=== PATIENT | female | born 1965 | race Caucasian/White ===

== ENCOUNTER 2017-02-07 21:44 | Emergency (ER) | payer MEDICAID ==
[2017-02-07 23:24] VITALS: BP 136/81
[2017-02-08] MEDS ORDERED: Ketorolac 60 MG/2 ML SDV IM ONE (00:30)
--- NOTE | 2017-02-08 01:28 | EDM.PDOC ---
ED HPI GENERAL MEDICAL PROBLEM - General Chief Complaint: Back Pain or Injury Stated Complaint: R LOWER BACK PAIN Time Seen by Provider: 02/08/17 00:11 Source of Information: Reports: Patient History Limitations: Reports: No Limitations - History of Present Illness INITIAL COMMENTS - FREE TEXT/NARRATIVE: low back pain; this is a 51 year old female presents to ER for back pain. she reports 3 weeks ago slipped but did not fall, twisting her back. reports she was also seen in [place] for the same symptoms. She was given 20 Hydrocodone, took last pill yesterday. Has appointment with Primary Care tomorrow for establish care. Onset: Gradual Duration: Week(s):, Constant Location: Reports: Back Quality: Reports: Ache, Throbbing Severity: Moderate Improves with: Reports: Rest Worsens with: Reports: Movement Associated Symptoms: Reports: No Other Symptoms Treatments HEALTH AND SAFETY DIRECTOR: Reports: Acetaminophen, NSAIDS Right Flank Pain Score (Numeric/FACES): 7 - Related Data Allergies Allergy/AdvReac Type Severity Reaction Status Date / Time No Known Allergies Allergy Verified 09/23/16 18:59 Home Meds: Home Meds Cyclobenzaprine [Flexeril] 10 mg PO TID 09/23/16 [History] hydrOXYzine HCl [Atarax] 25 - 50 mg PO DAILY PRN 09/23/16 [History] Citalopram [Celexa] 10 mg PO DAILY 02/08/17 [History] Past Medical History HEENT History: Reports: Impaired Vision Gastrointestinal History: Reports: Diverticulosis Musculoskeletal History: Reports: Fracture - Past Surgical History GI Surgical History: Reports: Other (See Below) Other GI Surgeries/Procedures: pt unable to describe but sounds like incision and drainage of an abscess Musculoskeletal Surgical History: Reports: ORIF Social & Family History - Tobacco Use Smoking Status *Q: Current Every Day Smoker Years of Tobacco use: 20 Packs/Tins Daily: 0.5 Used Tobacco, but Quit: No - Caffeine Use Caffeine Use: Reports: Coffee - Recreational Drug Use Recreational Drug Use: No - Living Situation & Occupation Social History Comment: lives in [place], [place]. ED ROS GENERAL - Review of Systems Review Of Systems: See Below Constitutional: Reports: No Symptoms HEENT: Reports: No Symptoms Respiratory: Reports: No Symptoms Cardiovascular: Reports: No Symptoms Endocrine: Reports: No Symptoms GI/Abdominal: Reports: No Symptoms : Reports: No Symptoms Musculoskeletal: Reports: Back Pain, Muscle Pain, Muscle Stiffness Neurological: Reports: No Symptoms Psychiatric: Reports: No Symptoms ED EXAM, GENERAL - Physical Exam Exam: See Below General Appearance: Alert, WD/WN, Mild Distress Ears: Normal External Exam, Normal Canal, Hearing Grossly Normal, Normal TMs Ear Exam: Bilateral Ear: Auricle Normal, Canal Normal, TM normal Nose: Normal Inspection, Normal Mucosa, No Blood Throat/Mouth: Normal Inspection, Normal Lips, Normal Teeth, Normal Gums, Normal Oropharynx, Normal Voice, No Airway Compromise Head: Atraumatic, Normocephalic Neck: Normal Inspection, Supple, Non-Tender, Full Range of Motion Respiratory/Chest: No Respiratory Distress Cardiovascular: Normal Peripheral Pulses, Regular Rate, Rhythm, No Edema, No Gallop, No JVD, No Murmur, No Rub Peripheral Pulses: 2+: Dorsalis Pedis (L), Dorsalis Pedis (R) GI/Abdominal: Normal Bowel Sounds, Soft, Non-Tender Back Exam: Normal Inspection, Decreased Range of Motion, Muscle Spasm Extremities: Normal Inspection, Normal Range of Motion, Non-Tender, Normal Capillary Refill, No Pedal Edema Neurological: Alert, Oriented, Normal Gait Psychiatric: Normal Affect, Normal Mood Skin Exam: Warm, Dry, Intact, Normal Color, No Rash Lymphatic: No Adenopathy Course - Vital Signs Last Recorded V/S: Last Vital Signs Temp 36.0 C 02/08/17 00:18 Pulse 72 02/08/17 00:18 Resp 18 02/08/17 00:18 BP 136/81 02/08/17 00:18 Pulse Ox 98 02/08/17 00:18 - Orders/Labs/Meds Orders: Active Orders 24 hr Category Date Time Status Lumbar Spine Min 4V [CR] Stat Exams 02/08/17 00:31 Taken urine +large leukocytes, +WBC Labs: Laboratory Tests 02/08/17 02/08/17 Range/Units 00:20 00:20 Urine Color Yellow Urine Appearance Cloudy Urine pH 5.0 (4.5-8.0) Ur Specific [place] 1.010 (1.008-1.030) Urine Protein Negative (NEGATIVE) mg/dL Urine Glucose (UA) Normal (NEGATIVE) mg/dL Urine Ketones Negative (NEGATIVE) mg/dL Urine Occult Blood Negative (NEGATIVE) Urine Nitrite Negative (NEGATIVE) Urine Bilirubin Negative (NEGATIVE) Urine Urobilinogen Normal (NORMAL) mg/dL Ur Leukocyte Esterase Large (NEGATIVE) Urine RBC 0-5 (0-5) Urine WBC 10-20 H (0-5) Ur Epithelial Cells Many Amorphous Sediment Not seen Urine Bacteria Many Urine Mucus Few Urine Opiates Screen Positive H (NEGATIVE) Ur Oxycodone Screen Positive H (NEGATIVE) Urine Methadone Screen Negative (NEGATIVE) Ur Propoxyphene Screen Negative (NEGATIVE) Ur Barbiturates Screen Negative (NEGATIVE) Ur Tricyclics Screen Negative (NEGATIVE) Ur Phencyclidine Scrn Negative (NEGATIVE) Ur Amphetamine Screen Negative (NEGATIVE) U Methamphetamines Scrn Negative (NEGATIVE) Urine MDMA Screen Negative (NEGATIVE) U Benzodiazepines Scrn Negative (NEGATIVE) U Cocaine Metab Screen Negative (NEGATIVE) U Marijuana (THC) Screen Negative (NEGATIVE) Meds: Medications Discontinued Medications Generic Name Dose Route Start Last Admin Trade Name Freq PRN Reason Stop Dose Admin Ketorolac Tromethamine 60 mg 02/08/17 00:30 02/08/17 01:03 Toradol IM 02/08/17 00:31 60 mg ONETIME ONE Administration - Radiology Interpretation Free Text/Narrative:: lumbar spine; no acute bony process, await radiology eval Departure - Departure Time of Disposition: 01:47 Disposition: Home, Self-Care 01 Condition: Good Clinical Impression: Bladder infection Low back pain Qualifiers: Back pain laterality: right Sciatica laterality: sciatica of right side - Discharge Information Instructions: Back Pain, Adult, Urinary Tract Infection, Adult Referrals: PCP,None [Primary Care Provider] - Forms: ED Department Discharge Care Plan Goals: bladder infection -macrobid one capsule two times a day for 7 days -drink 8 to 10 glasses of water per day low back pain -Toradol 60mg IM -Flexeril 10mg every 8 hours as needed for muscle spasms -hydrocodone 5-325mg one every 4 to6 hours disp #6 rest, avoid any bending, pushing, pulling or lifting for the next 3 to 5 days keep appointment with Primary Care for recheck. - Problem List & Annotations (1) Bladder infection SNOMED Code(s): 113368056 Code(s): N30.90 - CYSTITIS, UNSPECIFIED WITHOUT HEMATURIA Status: Acute Priority: High Current Visit: Yes (2) Low back pain SNOMED Code(s): 426939903 Code(s): M54.5 - LOW BACK PAIN Status: Acute Current Visit: Yes Qualifiers: Back pain laterality: right Sciatica laterality: sciatica of right side - My Orders Last 24 Hours: My Active Orders 02/08/17 00:31 Lumbar Spine Min 4V [CR] Stat - Assessment/Plan Last 24 Hours: My Active Orders 02/08/17 00:31 Lumbar Spine Min 4V [CR] Stat Plan: bladder infection -macrobid one capsule two times a day for 7 days -drink 8 to 10 glasses of water per day low back pain -Toradol 60mg IM -Flexeril 10mg every 8 hours as needed for muscle spasms -hydrocodone 5-325mg one every 4 to6 hours disp #6 rest, avoid any bending, pushing, pulling or lifting for the next 3 to 5 days keep appointment with Primary Care for recheck.
--- NOTE | 2017-02-08 09:45 | CR ---
Lumbar Spine Min 4V INDICATION: right side flank pain FINDINGS: 5 lumbar type vertebral bodies. Disc space height is relatively well-maintained. Minimal e ndplate hypertrophic changes at L4-5. Mild degenerative arthritis lower lumbar facet joints. Calcifi cations projected over bilateral kidneys. Consider noncontrast CT of the abdomen and pelvis.
== END 2017-02-08 01:42 | disposition home or self-care (01) ==
LOC: JP.ED 21:44
DX: N30.90 Cystitis, unspecified without hematuria (principal); F17.210 Nicotine dependence, cigarettes, uncomplicated; Z79.899 Other long term (current) drug therapy
CPT/HCPCS: 72110; 80305; 81001; 96372; 99284; J1885

== ENCOUNTER 2017-02-15 14:53 | Emergency (ER) | payer MEDICAID ==
[2017-02-15 15:13] VITALS: BP 133/84
--- NOTE | 2017-02-15 15:59 | EDM.PDOC ---
ED HPI GENERAL MEDICAL PROBLEM - General Chief Complaint: Back Pain or Injury Stated Complaint: PAIN MANAGEMENT Time Seen by Provider: 02/15/17 15:53 Source of Information: Reports: Patient, Family History Limitations: Reports: No Limitations - History of Present Illness INITIAL COMMENTS - FREE TEXT/NARRATIVE: pt arrived with increased pin the lower back and over the rt buttock. This does not extend down the leg. Onset: Gradual Duration: Day(s):, Getting Worse Location: Reports: Back, Other ( pain into the rt buttock. ) Quality: Reports: Sharp, Stabbing, Throbbing Associated Symptoms: Reports: No Other Symptoms Lower Back Pain Score (Numeric/FACES): 8 - Related Data Allergies Allergy/AdvReac Type Severity Reaction Status Date / Time No Known Allergies Allergy Verified 02/15/17 15:32 Home Meds: Home Meds Cyclobenzaprine [Flexeril] 10 mg PO TID 09/23/16 [History] hydrOXYzine HCl [Atarax] 25 - 50 mg PO DAILY PRN 09/23/16 [History] Citalopram [Celexa] 10 mg PO DAILY 02/08/17 [History] Methocarbamol [Methocarbamol] 1 tab PO BID PRN 02/15/17 [History] Past Medical History HEENT History: Reports: Impaired Vision Gastrointestinal History: Reports: Diverticulosis Musculoskeletal History: Reports: Fracture - Past Surgical History GI Surgical History: Reports: Other (See Below) Other GI Surgeries/Procedures: pt unable to describe but sounds like incision and drainage of an abscess Musculoskeletal Surgical History: Reports: ORIF Social & Family History - Tobacco Use Smoking Status *Q: Current Every Day Smoker Years of Tobacco use: 20 Packs/Tins Daily: 0.5 Used Tobacco, but Quit: No - Caffeine Use Caffeine Use: Reports: Coffee - Recreational Drug Use Recreational Drug Use: No ED ROS GENERAL - Review of Systems Review Of Systems: See Below Constitutional: Reports: No Symptoms HEENT: Reports: No Symptoms Respiratory: Reports: No Symptoms Cardiovascular: Reports: No Symptoms Endocrine: Reports: No Symptoms GI/Abdominal: Reports: No Symptoms : Reports: No Symptoms ED EXAM, UPPER BACK/NECK PAIN - Physical Exam Exam: See Below Text/Narrative:: pt turned quickly and she has had sig back pain since that time. The pain radiates to the rt and over the rt buttock. Exam Limited By: No Limitations General Appearance: Alert, Anxious, Severe Distress Ears Exam: Normal TMs Nose Exam: Normal Inspection Throat/Mouth Exam: Normal Inspection Head Exam: Atraumatic Neck Exam: Non-Tender Cardiovascular/Respiratory: Regular Rate, Rhythm GI/Abdominal: Other ( tender over the rt buttock) (Female) Exam: Deferred Rectal (Female) Exam: Deferred Back Exam: Other ( tender over the rt buttock with a positive straight leg raising. ) Extremities: Normal Inspection Course - Vital Signs Last Recorded V/S: Last Vital Signs Temp 36.9 C 02/15/17 15:31 Pulse 78 02/15/17 15:31 Resp 14 02/15/17 15:31 BP 133/84 02/15/17 15:31 Pulse Ox 98 02/15/17 15:31 - Re-Assessments/Exams Free Text/Narrative Re-Assessment/Exam: 02/15/17 15:57 mri showed a wide based disc on the rt L#_ L4 area. Departure - Departure Time of Disposition: 15:59 Disposition: Home, Self-Care 01 Condition: Fair Clinical Impression: Lumbar disc disease - Discharge Information Forms: ED Department Discharge Care Plan Goals: appt with Dr Nura Bishop. , appt with Amy Izaguirre, torodol 10mg twice daily with food fo the next 5 days, norco 5/325 q6h prn for severe pain, ice and heat.
== END 2017-02-15 16:24 | disposition home or self-care (01) ==
LOC: JP.ED 14:53
DX: M51.36 Other intervertebral disc degeneration, lumbar region (principal); F17.210 Nicotine dependence, cigarettes, uncomplicated; Z79.899 Other long term (current) drug therapy; M51.26 Other intervertebral disc displacement, lumbar region; M51.87 Other intervertebral disc disorders, lumbosacral region; M46.96 Unspecified inflammatory spondylopathy, lumbar region
CPT/HCPCS: 72148; 72148-26; 99283

== ENCOUNTER 2017-05-15 23:34 | Emergency (ER) | payer MEDICAID ==
--- NOTE | 2017-05-16 00:06 | EDM.PDOC ---
ED HPI GENERAL MEDICAL PROBLEM - General Chief Complaint: Gastrointestinal Problem Stated Complaint: MEDICAL VIA [facility] Time Seen by Provider: 05/15/17 23:51 Source of Information: Reports: Patient, RN Notes Reviewed History Limitations: Reports: No Limitations - History of Present Illness INITIAL COMMENTS - FREE TEXT/NARRATIVE: 51-year-old female presents emergency department day complaint of bright red blood in her stool, she states this started this morning initially had dark tarry stools this progressed to bright red blood by this evening she has felt dizzy throughout the day but currently that has resolved no nausea or vomiting has generalized abdominal cramping pain. Does have a history of diverticular disease past Abdomen Pain Score (Numeric/FACES): 6 - Related Data Allergies Allergy/AdvReac Type Severity Reaction Status Date / Time No Known Allergies Allergy Verified 02/15/17 15:32 Home Meds: Home Meds hydrOXYzine HCl [Atarax] 25 - 50 mg PO DAILY PRN 09/23/16 [History] Citalopram [Celexa] 10 mg PO DAILY 02/08/17 [History] Past Medical History HEENT History: Reports: Impaired Vision Gastrointestinal History: Reports: Diverticulosis Musculoskeletal History: Reports: Back Pain, Chronic, Fracture - Infectious Disease History Infectious Disease History: Reports: Chicken Pox - Past Surgical History GI Surgical History: Reports: Other (See Below) Other GI Surgeries/Procedures: pt unable to describe but sounds like incision and drainage of an abscess Musculoskeletal Surgical History: Reports: ORIF Social & Family History - Tobacco Use Smoking Status *Q: Current Every Day Smoker Years of Tobacco use: 20 Packs/Tins Daily: 0.5 Used Tobacco, but Quit: No - Caffeine Use Caffeine Use: Reports: Coffee, Soda - Recreational Drug Use Recreational Drug Use: No ED ROS GENERAL - Review of Systems Review Of Systems: See Below Constitutional: Reports: No Symptoms HEENT: Reports: No Symptoms Respiratory: Reports: No Symptoms Cardiovascular: Reports: No Symptoms GI/Abdominal: Reports: Abdominal Pain, Black Stool, Bloody Stool : Reports: No Symptoms Musculoskeletal: Reports: No Symptoms Skin: Reports: No Symptoms Neurological: Reports: No Symptoms ED EXAM, GI/ABD - Physical Exam Exam: See Below Exam Limited By: No Limitations General Appearance: Alert, WD/WN, No Apparent Distress Head: Atraumatic, Normocephalic Neck: Normal Inspection, Supple, Non-Tender, Full Range of Motion Respiratory/Chest: No Respiratory Distress, Lungs Clear, Normal Breath Sounds, No Accessory Muscle Use, Chest Non-Tender Cardiovascular: Regular Rate, Rhythm, No Murmur GI/Abdominal Exam: Normal Bowel Sounds, Soft, Tender (Generalized tenderness) Rectal (Female) Exam: Normal Exam, Normal Rectal Tone. No: Bloody Stool, Hemorrhoids Course - Vital Signs Last Recorded V/S: Last Vital Signs Temp 98.1 F 05/15/17 23:39 Pulse 94 05/16/17 01:30 Resp 18 05/15/17 23:39 BP 115/81 05/16/17 01:30 Pulse Ox 93 L 05/16/17 01:30 - Orders/Labs/Meds Orders: Active Orders 24 hr Category Date Time Status Abdomen Pelvis w Cont [CT] Stat Exams 05/16/17 01:24 Taken Sodium Chloride 0.9% [Normal Saline] 1,000 ml Med 05/16/17 01:30 Active IV ASDIRECTED Medication Orders Sodium Chloride (Normal Saline) 1,000 mls @ 999 mls/hr IV ASDIRECTED JOHNNY Last Admin: 05/16/17 01:29 Dose: 999 mls/hr Labs: Laboratory Tests 05/16/17 05/16/17 05/16/17 Range/Units 00:03 00:03 00:10 WBC 9.6 (4.5-11.0) K/uL RBC 4.28 (3.30-5.50) M/uL Hgb 13.5 (12.0-15.0) g/dL Hct 41.0 (36.0-48.0) % MCV 96 (80-98) fL MCH 32 H (27-31) pg MCHC 33 (32-36) % Plt Count 285 (150-400) K/uL Neut % (Auto) 71 H (36-66) % Lymph % (Auto) 20 L (24-44) % [place] % (Auto) 9 H (2-6) % Eos % (Auto) 1 L (2-4) % Baso % (Auto) 0 (0-1) % Sodium 136 L (140-148) mmol/L Potassium 3.9 (3.6-5.2) mmol/L Chloride 102 (100-108) mmol/L Carbon Dioxide 29 (21-32) mmol/L Anion Gap 8.9 (5.0-14.0) mmol/L BUN 14 (7-18) mg/dL Creatinine 0.8 (0.6-1.0) mg/dL Est Cr Clr Drug Dosing TNP Estimated GFR (MDRD) > 60 (>60) Glucose 115 H (74-106) mg/dL Lactic Acid 1.0 (0.4-2.0) mmol/L Calcium 8.4 L (8.5-10.1) mg/dL Total Bilirubin 0.4 (0.2-1.0) mg/dL AST 20 (15-37) U/L ALT 21 (12-78) U/L Alkaline Phosphatase 43 L (46-116) U/L Total Protein 7.0 (6.4-8.2) g/dL Albumin 3.3 L (3.4-5.0) g/dL Globulin 3.7 H (2.3-3.5) g/dL Albumin/Globulin Ratio 0.9 L (1.2-2.2) Lipase 63 L (73-393) U/L Meds: Medications Generic Name Dose Route Start Last Admin Trade Name Freq PRN Reason Stop Dose Admin Sodium Chloride 1,000 mls @ 999 mls/hr 05/16/17 01:30 05/16/17 01:29 Normal Saline IV 999 mls/hr ASDIRECTED JOHNNY Administration Discontinued Medications Generic Name Dose Route Start Last Admin Trade Name Grace PRN Reason Stop Dose Admin Hydromorphone HCl 1 mg 05/16/17 01:23 05/16/17 01:27 Dilaudid IVPUSH 05/16/17 01:24 1 mg ONETIME ONE Administration Sodium Chloride 70 mls @ 3 mls/sec 05/16/17 01:34 05/16/17 01:50 Normal Saline IV 05/16/17 01:35 3 mls/sec ASDIRECTED STA Administration Iopamidol 88 ml 05/16/17 01:34 05/16/17 01:50 Isovue-300 (61%) IV 05/16/17 01:35 100 ml . DIRECTED STA Administration Departure - Departure Time of Disposition: 02:43 Disposition: Home, Self-Care 01 Condition: Good Clinical Impression: Bloody stool - Discharge Information Referrals: PCP,None [Primary Care Provider] - Forms: ED Department Discharge Additional Instructions: Start the colonoscopy prep today, use hydrocodone as needed for pain control, please report to outpatient surgery for your colonoscopy on with Dr. Bishop - My Orders Last 24 Hours: My Active Orders 05/16/17 01:24 Abdomen Pelvis w Cont [CT] Stat 05/16/17 01:30 Sodium Chloride 0.9% [Normal Saline] 1,000 ml IV ASDIRECTED - Assessment/Plan Last 24 Hours: My Active Orders 05/16/17 01:24 Abdomen Pelvis w Cont [CT] Stat 05/16/17 01:30 Sodium Chloride 0.9% [Normal Saline] 1,000 ml IV ASDIRECTED Plan: Assessment Acuity = acute Site and laterality = bright red blood per stool Etiology = unclear etiology Manifestations = none Location of injury = Home Lab values = hemoglobin stable at 13.50 being low at 3.3 consistent hypoalbuminemia, CT scan of the abdomen shows thickened sigmoid colon consistent with a colitis Plan Called discussed case with Dr. Bishop general surgery he agreed to evaluate her with a colonoscopy, possible EGD if needed, she is given the colonoscopy prep today and then will follow-up for colonoscopy as an outpatient. Also provided 10 hydrocodone 5/325 one tab by mouth 3 times a day when necessary Patient was in agreement with the plan all questions were answered, they were instructed to return to the emergency department or call for worsening symptoms. This note was dictated using [employer] voice recognition software please call with any questions.
[2017-05-16] MEDS ORDERED: HYDROmorphone 1 MG/ML Syringe IVPUSH ONE (01:23)
[2017-05-16] MEDS ORDERED: Sodium Chloride 0.9% 1,000 ML IV SCH (01:30)
[2017-05-16 01:33] VITALS: BP 115/81
[2017-05-16] MEDS ORDERED: Iopamidol 612 MG/ML 100 ML Bottle IV STA (01:34)
== END 2017-05-16 03:00 | disposition home or self-care (01) ==
LOC: JP.ED 23:34
DX: K92.1 Melena (principal); F17.210 Nicotine dependence, cigarettes, uncomplicated; Z79.899 Other long term (current) drug therapy
CPT/HCPCS: 36415; 74177; 80053; 82272; 83605; 83690; 85025; 96361; 96374; 99284; J1170; J7030; J7040; Q9967

== ENCOUNTER 2017-05-17 08:34 | Day surgery (SDC) | payer MEDICAID ==
[2017-05-17] MEDS ORDERED: Dextrose 5%-Lactated Ringers 1,000 ML IV SCH (09:00)
[2017-05-17] MEDS ORDERED: Propofol 200 MG/20 ML SDV ONE (09:32)
[2017-05-17] MEDS ORDERED: Midazolam 1 MG/ML 2 ML SDV ONE (09:32)
[2017-05-17] MEDS ORDERED: fentaNYL 100 MCG/2 ML SDV ONE (09:32)
[2017-05-17] MEDS ORDERED: Glycopyrrolate 0.2 MG/ML 2 ML SDV IVPUSH ONE (09:45)
[2017-05-17 13:14] VITALS: BP 101/83
[2017-05-17] MEDS ORDERED: Barium Sulfate 105% w/v Susp 1,900 ML Bottle RECTAL ONE (13:55)
--- NOTE | 2017-05-17 14:09 | CR ---
Barium enema. Indication: Incomplete colonoscopy. Findings: The sigmoid colon is extensively redundant. Contrast has passed the sigmoid colon and into the right-sided colon. There is diverticular disease within the sigmoid colon. Correlate choice limit ed on this examination but no gross evidence for stricture within it. This can be better visualized a virtual colonoscopy. Impression: 1. Extensive redundancy within the sigmoid colon. This can be better visualized with virtual colonosc opy.
--- NOTE | 2017-05-21 12:33 | OR ---
DATE OF PROCEDURE: 05/17/2017 PREOPERATIVE DIAGNOSES: 1. Epigastric pain. 2. History of rectal bleeding. POSTOPERATIVE DIAGNOSES: 1. Upper GI endoscopy showing;. a. Small hiatal hernia with no significant inflammation at esophagogastric junction. b. Antral gastritis associated with few prepyloric erosions. 2. Colonoscopy showing a tortuous sigmoid colon preventing complete colonoscopy. OPERATIVE PROCEDURES: 1. Esophagogastroduodenoscopy with biopsies of the antrum for CLOtest. 2. Flexible colonoscopy (incomplete). ANESTHESIA: IV sedation. INDICATION FOR PROCEDURE: A 51-year-old female presenting with some epigastric pain as well as history of some dark red and tinged bright red rectal bleeding. The plan is to proceed with upper and lower endoscopy. Potential risks of the procedure including bleeding and perforation were discussed, and the patient wishes to proceed. DETAILS OF PROCEDURE: The patient was taken to the operating room and placed in a left lateral decubitus position. IV sedation was administered, after which the upper GI endoscope was passed orally through the length of the esophagus and into the stomach with retroflexion view of the fundus, and thereafter through the pyloric channel and then into the junction of the third and fourth portions of the duodenum. Findings included normal hypopharynx, larynx, and upper esophageal sphincter. At the EG junction, there was a small hiatal hernia present, but no significant gross inflammation present. There was no upward extension of the gastroesophageal junction mucosal line. Within the stomach, there was some gastritis within the antrum with diffuse scattered erosions. Some of these had some old [id number] material and others were covered with fibrinous exudate. The pyloric channel and proximal duodenum were unremarkable. Biopsies were then obtained from the antrum and sent for CLOtest for H. pylori. No bleeding from the biopsy sites were seen, and the procedure then concluded. Attention was then taken to the colonoscopy. Initial digital rectal exam was performed and was unremarkable. Colonoscope was then passed into the rectum with retroflexion revealing uncomplicated hemorrhoidal columns. The scope was then eventually passed to the level of the 30-cm shalom, but could not be passed beyond that. This likely has to do with the patient's previous history of diverticulitis, creating some sharp angulation and fixation of the bowel at that level. The scope was then withdrawn, and the procedure then concluded. The patient was taken to the recovery room in a satisfactory condition. The patient subsequently had a barium enema x-ray, and this showed severe redundancy of the colon, but no obvious pathology apart from the diverticulosis, and the patient was subsequently discharged home. The patient will be started on Protonix 40 mg a day and then we will see her back on 05/17/2017. If she continues to have bleeding, we may need to consider empiric sigmoid colon resection. Additionally, given the recurrence in the colon, as discussed with the radiologist, future screening would likely be best by means of a virtual colonoscopy rather than needing a barium enema or standard colonoscopy. The patient will be seen by myself in [facility] on 05/17/2017. Donovan Bishop MD /[id number]
== END 2017-05-17 15:07 | disposition home or self-care (01) ==
LOC: JP.SDS 08:34
PROVIDERS: ATTEND Surgery
DX: K92.1 Melena (principal); K44.9 Diaphragmatic hernia without obstruction or gangrene; F41.9 Anxiety disorder, unspecified; F17.210 Nicotine dependence, cigarettes, uncomplicated
CPT/HCPCS: 43239; 45378; 74270; 87081; J2250; J2704; J3010; J7042; J3490

== ENCOUNTER 2018-04-11 16:49 | Emergency (ER) | payer MEDICAID ==
[2018-04-11] MEDS ORDERED: Ketorolac 30 MG/ML SDV IVPUSH ONE (18:04)
[2018-04-11] MEDS ORDERED: Lactated Ringers 1,000 ML IV ONE (18:04)
--- NOTE | 2018-04-11 18:06 | EDM.PDOC ---
ED HPI GENERAL MEDICAL PROBLEM - General Chief Complaint: Abdominal Pain Stated Complaint: ILLNESS Time Seen by Provider: 04/11/18 18:00 Source of Information: Reports: Patient, Old Records History Limitations: Reports: Other (incomplete old records) - History of Present Illness INITIAL COMMENTS - FREE TEXT/NARRATIVE: 52 yo female with a pHx of diverticulitis presents with LLQ abdominal pain that has progressed for the past week. No fever. Says she has to stand to have a BM. No bleeding or nausea. Has lived in the [place] area for 2 yrs yet still does not have a primary care provider. Is on no meds. Here with her father. Stools variably hard, soft, and mucousy. Onset: Gradual Onset Date: 04/04/18 Duration: Week(s): (1), Constant, Getting Worse Location: Reports: Abdomen (LLQ) Quality: Reports: Ache Severity: Moderate Improves with: Reports: Rest Worsens with: Reports: Movement Context: Reports: Other (See HPI) Associated Symptoms: Reports: No Other Symptoms. Denies: Fever/Chills, Nausea/ Vomiting Treatments PODIATRIC MEDICINE PROFESSOR: Reports: Other (see below) (none) Left Lower Abdomen Pain Score (Numeric/FACES): 4 - Related Data Allergies Allergy/AdvReac Type Severity Reaction Status Date / Time No Known Allergies Allergy Verified 02/26/18 16:39 Home Meds: Home Meds S-Adenosylmethionine Sul Tosyl [Pollo-E] 200 mg PO DAILY 02/26/18 [History] Mesalamine [Canasa] 1,000 mg RECTAL BID #20 supp 04/11/18 [Rx] Past Medical History HEENT History: Reports: Impaired Vision Gastrointestinal History: Reports: Diverticulosis Musculoskeletal History: Reports: Back Pain, Chronic, Fracture Psychiatric History: Reports: Anxiety, Depression - Infectious Disease History Infectious Disease History: Reports: Chicken Pox - Past Surgical History Head Surgeries/Procedures: Reports: None HEENT Surgical History: Reports: Tonsillectomy GI Surgical History: Reports: Colonoscopy, Other (See Below) Other GI Surgeries/Procedures: pt unable to describe but sounds like incision and drainage of an abscess Musculoskeletal Surgical History: Reports: ORIF Dermatological Surgical History: Reports: None Social & Family History - Family History Family Medical History: Noncontributory - Tobacco Use Smoking Status *Q: Current Every Day Smoker Years of Tobacco use: 20 Packs/Tins Daily: 1 - Caffeine Use Caffeine Use: Reports: Coffee, Soda, Tea - Recreational Drug Use Recreational Drug Use: No ED ROS GENERAL - Review of Systems Review Of Systems: See Below Constitutional: Reports: No Symptoms HEENT: Reports: No Symptoms Respiratory: Reports: No Symptoms Cardiovascular: Reports: No Symptoms GI/Abdominal: Reports: Abdominal Pain (LLQ). Denies: Black Stool, Bloody Stool , Constipation, Diarrhea, Decreased Appetite, Distension, Hematemesis, Hematochezia, Melena, Nausea, Vomiting : Reports: No Symptoms Musculoskeletal: Reports: No Symptoms Skin: Reports: No Symptoms Neurological: Reports: No Symptoms Psychiatric: Reports: No Symptoms ED EXAM, GI/ABD - Physical Exam Exam: See Below Exam Limited By: No Limitations General Appearance: Alert, WD/WN, No Apparent Distress Eyes: Bilateral: Normal Appearance Ears: Normal External Exam, Normal Canal, Hearing Grossly Normal, Normal TMs Nose: Normal Inspection, Normal Mucosa, No Blood Throat/Mouth: Normal Inspection, Normal Lips, Normal Oropharynx, No Airway Compromise Head: Atraumatic, Normocephalic Neck: Normal Inspection, Supple Respiratory/Chest: No Respiratory Distress, Lungs Clear, Normal Breath Sounds, No Accessory Muscle Use Cardiovascular: Regular Rate, Rhythm, No Edema GI/Abdominal Exam: Normal Bowel Sounds, Soft, No Distention, Rebound, Tender ( LLQ). No: Non-Tender, Distended, Guarding, Rigid, Hernia Back Exam: Normal Inspection. No: CVA Tenderness (R), CVA Tenderness (L) Extremities: Normal Inspection, Normal Range of Motion, Non-Tender, No Pedal Edema Neurological: Alert, Oriented, CN II-XII Intact, Normal Cognition, No Motor/ Sensory Deficits Psychiatric: Normal Affect, Normal Mood Skin Exam: Warm, Dry, Intact, Normal Color, No Rash Lymphatic: No Adenopathy Course - Vital Signs Last Recorded V/S: Last Vital Signs Temp 37.0 C 04/11/18 17:07 Pulse 67 04/11/18 19:07 Resp 16 04/11/18 19:07 BP 140/89 04/11/18 19:07 Pulse Ox 96 04/11/18 19:07 - Orders/Labs/Meds Orders: Active Orders 24 hr Category Date Time Status Abdomen Pelvis w Cont [CT] Stat Exams 04/11/18 18:05 Taken Iopamidol [Isovue-300 (61%)] Med 04/11/18 18:30 Active 80 ml IV . DIRECTED Sodium Chloride 0.9% [Normal Saline] 70 ml Med 04/11/18 18:30 Active IV ASDIRECTED Sodium Chloride 0.9% [Saline Flush] Med 04/11/18 18:30 Active 10 ml FLUSH ASDIRECTED PRN Medication Orders Sodium Chloride (Normal Saline) 70 mls @ 3 mls/sec IV ASDIRECTED JOHNNY Last Admin: 04/11/18 18:57 Dose: 3 mls/sec Iopamidol (Isovue-300 (61%)) 80 ml IV . DIRECTED JOHNNY Last Admin: 04/11/18 18:57 Dose: 80 ml Sodium Chloride (Saline Flush) 10 ml FLUSH ASDIRECTED PRN PRN Reason: Keep Vein Open Last Admin: 04/11/18 18:57 Dose: 10 ml Admin: 04/11/18 18:39 Dose: 10 ml Labs: Laboratory Tests 04/11/18 04/11/18 04/11/18 Range/Units 18:05 18:19 18:19 WBC 6.3 (4.5-11.0) K/uL RBC 3.71 (3.30-5.50) M/uL Hgb 12.0 (12.0-15.0) g/dL Hct 36.8 (36.0-48.0) % MCV 99 H (80-98) fL MCH 32 H (27-31) pg MCHC 33 (32-36) % Plt Count 278 (150-400) K/uL Sodium 141 (140-148) mmol/L Potassium 4.7 (3.6-5.2) mmol/L Chloride 106 (100-108) mmol/L Carbon Dioxide 26 (21-32) mmol/L Anion Gap 8.9 (5.0-14.0) mmol/L BUN 18 (7-18) mg/dL Creatinine 0.6 (0.6-1.0) mg/dL Est Cr Clr Drug Dosing 96.39 mL/min Estimated GFR (MDRD) > 60 (>60) Glucose 85 (74-106) mg/dL Calcium 8.6 (8.5-10.1) mg/dL C-Reactive Protein 0.05 (0.0-0.3) mg/dL Urine Color Yellow Urine Appearance Clear Urine pH 6.0 (4.5-8.0) Ur Specific [place] 1.020 (1.008-1.030) Urine Protein Negative (NEGATIVE) mg/dL Urine Glucose (UA) Normal (NEGATIVE) mg/dL Urine Ketones Negative (NEGATIVE) mg/dL Urine Occult Blood Negative (NEGATIVE) Urine Nitrite Negative (NEGATIVE) Urine Bilirubin Negative (NEGATIVE) Urine Urobilinogen Normal (NORMAL) mg/dL Ur Leukocyte Esterase Small (NEGATIVE) Urine RBC 0-5 (0-5) Urine WBC 5-10 H (0-5) Ur Epithelial Cells Few Amorphous Sediment Few Urine Bacteria Rare Urine Mucus Few Meds: Medications Generic Name Dose Route Start Last Admin Trade Name Freq PRN Reason Stop Dose Admin Sodium Chloride 70 mls @ 3 mls/sec 04/11/18 18:30 04/11/18 18:57 Normal Saline IV 3 mls/sec ASDIRECTED JOHNNY Administration Iopamidol 80 ml 04/11/18 18:30 04/11/18 18:57 Isovue-300 (61%) IV 80 ml . DIRECTED JOHNNY Administration Sodium Chloride 10 ml 04/11/18 18:30 04/11/18 18:57 Saline Flush FLUSH 10 ml ASDIRECTED PRN Administration Keep Vein Open Discontinued Medications Generic Name Dose Route Start Last Admin Trade Name Freq PRN Reason Stop Dose Admin Lactated Ringer's 1,000 mls @ 1,000 mls/hr 04/11/18 18:04 04/11/18 18:41 Ringers, Lactated IV 04/11/18 19:03 1,000 mls/hr BOLUS ONE Administration Ketorolac Tromethamine 30 mg 04/11/18 18:04 04/11/18 18:36 Toradol IVPUSH 04/11/18 18:05 30 mg ONETIME ONE Administration - Radiology Interpretation Free Text/Narrative:: Abd/pelvis CT with IV contrast-acute proctocolitis CT Results Date: 04/11/18 CT Results Time: 19:40 Departure - Departure Time of Disposition: 20:00 Disposition: Home, Self-Care 01 Condition: Fair Clinical Impression: Acute colitis - Discharge Information *PRESCRIPTION DRUG MONITORING PROGRAM REVIEWED*: Not Applicable *COPY OF PRESCRIPTION DRUG MONITORING REPORT IN PATIENT STEFANO: Not Applicable Instructions: Colitis Referrals: Vasquez,Lilly, COSTUME TECHNICIAN [Primary Care Provider] - Forms: ED Department Discharge Additional Instructions: Use your prescription suppository every 12 hrs. Call to schedule a clinic appt for ER follow up. Eat a diet low in animal protein. Take acetaminophen as needed for pain relief. - My Orders Last 24 Hours: My Active Orders 04/11/18 18:05 Abdomen Pelvis w Cont [CT] Stat 04/11/18 18:30 Iopamidol [Isovue-300 (61%)] 80 ml IV . DIRECTED Sodium Chloride 0.9% [Normal Saline] 70 ml IV ASDIRECTED Sodium Chloride 0.9% [Saline Flush] 10 ml FLUSH ASDIRECTED PRN - Assessment/Plan Last 24 Hours: My Active Orders 04/11/18 18:05 Abdomen Pelvis w Cont [CT] Stat 04/11/18 18:30 Iopamidol [Isovue-300 (61%)] 80 ml IV . DIRECTED Sodium Chloride 0.9% [Normal Saline] 70 ml IV ASDIRECTED Sodium Chloride 0.9% [Saline Flush] 10 ml FLUSH ASDIRECTED PRN
[2018-04-11] MEDS ORDERED: Iopamidol 612 MG/ML 100 ML Bottle IV SCH (18:30)
[2018-04-11] MEDS: Sodium Chloride 0.9% 10 ML Syringe FLUSH PRN ×2 (18:39→18:57)
[2018-04-11 19:08] VITALS: BP 140/89
== END 2018-04-11 20:16 | disposition home or self-care (01) ==
LOC: JP.ED 16:49
DX: K52.9 Noninfective gastroenteritis and colitis, unspecified (principal); F17.210 Nicotine dependence, cigarettes, uncomplicated; Z79.899 Other long term (current) drug therapy
CPT/HCPCS: 36415; 74177; 80048; 81001; 85027; 86140; 96360; 99284-25; J1885; J7030; J7050; J7120; Q9967